=== PATIENT | male | born 1975 | race Caucasian/White ===

== ENCOUNTER 2024-08-05 19:17 | Inpatient (IN) | payer BC ==
[2024-08-05] MEDS ORDERED: NALOXONE 0.4 MG/ML 1 ML VIAL IV PRN (19:52)
--- NOTE | 2024-08-05 19:52 | ED ---
Chest Pain HPI - General Chief Complaint: Chest Pain Stated Complaint: chest and L shoulder pain Time Seen by Provider: 08/05/24 19:28 Source: patient Mode of arrival: ambulatory Limitations: no limitations - History of Present Illness Initial Comments: 48-year-old male with past medical history of hypertension, borderline cholesterol who presents emergency department reporting chest pain. States that this chest pain started around 3 PM while he was driving. Describes it as a pressure sensation. Feels like as if he has to belch. He did have this pain 1 week ago. States he took Gas-X but it did not work. Pain eventually went away on its own. He tried the Gas-X again today and also did not work. He has never had any type of cardiac testing to include a stress test, echo. He denies any history of coronary disease. Describes the pain as a 5 out of 10. No associated shortness of breath but does admit to nausea with no vomiting. Denies any numbness, tingling or weakness in his extremities. No other alleviating, precipitating modifying factors - Related Data Home Medications Medication Instructions Recorded Confirmed Fluticasone Nasal Rison [Flonase 2 spray EA NOSTRIL HS 08/06/24 08/06/24 Nasal Rison] Previous Rx's Medication Instructions Recorded Aspirin 81 mg PO DAILY #30 tab 08/08/24 Atorvastatin [Lipitor] 40 mg PO HS #30 tab 08/08/24 Dapagliflozin Propanediol [Farxiga] 10 mg PO DAILY #30 tab 08/08/24 Metoprolol Succinate (ER) [Toprol 100 mg PO DAILY #30 tab 08/08/24 XL] Pantoprazole [Protonix] 40 mg PO AC-BRKFST #30 tab 08/08/24 Sacubitril/Valsartan [Entresto 49 1 each PO BID #60 tab 08/08/24 mg-51 mg Tablet] Spironolactone [Aldactone] 25 mg PO DAILY #30 tab 08/08/24 Ticagrelor [Brilinta] 90 mg PO BID #60 tab 08/08/24 Allergies Allergy/AdvReac Type Severity Reaction Status Date / Time No Known Allergies Allergy Verified 08/06/24 08:53 Review of Systems ROS Statement: Those systems with pertinent positive or pertinent negative responses have been documented in the HPI. ROS Other: All systems not noted in ROS Statement are negative. Past Medical History Past Medical History: Hypertension History of Any Multi-Drug Resistant Organisms: None Reported Past Surgical History: No Surgical Hx Reported Past Psychological History: No Psychological Hx Reported Smoking Status: Never smoker Past Alcohol Use History: Occasional Past Drug Use History: None Reported General Exam Limitations: no limitations General appearance: alert, in no apparent distress Head exam: Present: atraumatic, normocephalic, normal inspection Eye exam: Present: normal appearance, PERRL, EOMI. Absent: scleral icterus, conjunctival injection, periorbital swelling ENT exam: Present: normal exam, mucous membranes moist Neck exam: Present: normal inspection. Absent: tenderness, meningismus, lymphadenopathy Respiratory exam: Present: normal lung sounds bilaterally. Absent: respiratory distress, wheezes, rales, rhonchi, stridor Cardiovascular Exam: Present: normal rhythm, tachycardia, normal heart sounds. Absent: systolic murmur, diastolic murmur, rubs, gallop, clicks GI/Abdominal exam: Present: soft, normal bowel sounds. Absent: distended, tenderness, guarding, rebound, rigid Extremities exam: Present: normal inspection, full ROM, normal capillary refill. Absent: tenderness, pedal edema, joint swelling, calf tenderness Back exam: Present: normal inspection Neurological exam: Present: alert, oriented X3, CN II-XII intact Psychiatric exam: Present: normal affect, normal mood Skin exam: Present: warm, dry, intact, normal color. Absent: rash Course Vital Signs 08/05/24 19:17 Temperature 97.9 F Pulse Rate 111 H Respiratory 18 Rate Blood Pressure 155/105 O2 Sat by Pulse 98 Oximetry Chest Pain MDM - MDM Was pt. sent in by a medical professional or institution (Dr. PA, MANAGEMENT PROFESSOR, urgent care, hospital, or [facility]...) When possible be specific @ -No Did you speak to anyone other than the patient for history (EMS, parent, family, police, friend...)? What history was obtained from this source @ -No Did you review nursing and triage notes (agree or disagree)? Why? @ -I reviewed and agree with nursing and triage notes Were old charts reviewed (outside hosp., previous admission, EMS record, old EKG, old radiological studies, urgent care reports/EKG's, [facility] records)? Report findings @ -No old charts were reviewed Differential Diagnosis (chest pain, altered mental status, abdominal pain women, abdominal pain men, vaginal bleeding, weakness, fever, dyspnea, syncope, headache, dizziness, GI bleed, back pain, seizure, CVA, palpatations, mental health, musculoskeletal)? @ -Differential Chest Pain: Stable Angina, Unstable Angina, STEMI, NSTEMI Aortic Dissection, Pneumothorax, Musculoskeletal, Esophageal Spasm GERD, Cholecystitis, Pancreatitis, Zoster, this is not meant to be an all-inclusive list. EKG interpreted by me (3pts min.). @ - First EKG done at 1925 demonstrates sinus tachycardia with a rate of 102. OH interval 159. QRS 89. QTc of 374. No ST segment elevation which meet STEMI criteria however there is mildly concerning ST elevation in V2 Second EKG demonstrates sinus tachycardia with a rate of 107. OH interval 160. QRS 106. QTc of 380. There is no ST elevation in V3 as well as V2 with some reciprocal depression in 2, 3 and aVF. MEETS STEMI CRITERIA Third EKG is completed at 1938 which continues to demonstrate [address] elevation in V3, V2 with reciprocal changes in inferior leads. Rate of 106. OH interval 159. QRS 100. QTc of 384 X-rays interpreted by me (1pt min.). @ -Yes which demonstrates no acute process CT interpreted by me (1pt min.). @ -None done U/S interpreted by me (1pt. min.). @ -None done What testing was considered but not performed or refused? (CT, X-rays, U/S, labs)? Why? @ -None What meds were considered but not given or refused? Why? @ -None Did you discuss the management of the patient with other professionals (professionals i.e. , PA, MANAGEMENT PROFESSOR, lab, RT, psych nurse, social work lecturer, bomb squad officer, teacher, business services officer, hospice case manager)? Give summary @ -Discussed case with doctor Kelsey in regards to STEMI activation Was smoking cessation discussed for >3mins.? @ -No Was critical care preformed (if so, how long)? @ -Yes, 35 minutes for STEMI activation Were there social determinants of health that impacted care today? How? (Homelessness, low income, unemployed, alcoholism, drug addiction, transportation, low edu. Level, literacy, decrease access to med. care, longterm, rehab)? @ -No Was there de-escalation of care discussed even if they declined (Discuss DNR or withdrawal of care, Hospice)? DNR status @ -No What co-morbidities impacted this encounter? (DM, HTN, Smoking, COPD, CAD, Cancer, CVA, ARF, Chemo, Hep., AIDS, mental health diagnosis, sleep apnea, morbid obesity)? @ -Hypertension Was patient admitted / discharged? Hospital course, mention meds given and route, prescriptions, significant lab abnormalities, going to OR and other pertinent info. @ -Upon arrival patient seen and evaluated in hallway 22. Thorough history and physical exam was performed. Original EKG was done at 1925 which demonstrates mildly concerning elevation in V2. No STEMI criteria at this time. Repeat EKG completed within 10 additional minutes of the first is now demonstrate elevation in V2 and V3 with reciprocal changes. STEMI is activated at this time. Dr. Kelsey does call and then shortly afterwards presents the emergency department to evaluate the patient. He is in agreement that the second and third EKG obtained now demonstrate STEMI criteria. Patient was given 4000 units of heparin, 80 mg atorvastatin, four chewable 81 mg aspirins and a liter bolus of normal saline. Laboratory studies are drawn on the patient. A portable chest x-ray was performed. Patient was promptly taken to the [facility] in stable condition. She did speak with Bernice from [facility] for the admission Undiagnosed new problem with uncertain prognosis? @ -No Drug Therapy requiring intensive monitoring for toxicity (Heparin, Nitro, Insulin, Cardizem)? @ -Heparin Were any procedures done? @ -No Diagnosis/symptom? @ -Acute chest pain, acute STEMI Acute, or Chronic, or Acute on Chronic? @ -Acute Uncomplicated (without systemic symptoms) or Complicated (systemic symptoms)? @ -Complicated Side effects of treatment? @ -No Exacerbation, Progression, or Severe Exacerbation? @ -No Poses a threat to life or bodily function? How? (Chest pain, [place], [place], pneumonia, PE, COPD, DKA, ARF, appy, cholecystitis, CVA, Diverticulitis, Homicidal, Suicidal, threat to staff... and all critical care pts) @ -Yes this patient does have ST elevation on second and third EKG Disposition Clinical Impression: Chest pain, ST elevation myocardial infarction (STEMI) Disposition: ADMITTED IP TO THIS HOSP Condition: Stable Is patient prescribed a controlled substance at d/c from ED?: No Time of Disposition: 19:51 Decision to Admit Reason: Admit from EC Decision Date: 08/05/24 Decision Time: 19:52
[2024-08-05] MEDS: ATORVASTATIN 80 MG TAB PO STA (19:55)
[2024-08-05] MEDS: ASPIRIN 81 MG PO STA (19:55)
[2024-08-05] MEDS: HEPARIN SODIUM 1,000 UN/ML (10ML VL) IV ONE ×3 (19:55→20:28)
[2024-08-05] MEDS: SODIUM CHLORIDE 0.9% 1,000 ML IV SCH (19:59)
[2024-08-05 20:01] LABS: Basophils # (A) 0.1 k/uL (0-0.2); Basophils % (A) 1 %; Eosinophils # (A) 0.1 k/uL (0-0.7); Eosinophils % (A) 1 %; HCT 48.7 % (39.0-53.0); HGB 16.7 gm/dL (13.0-17.5); Lymphocytes # (A) 2.1 k/uL (1.0-4.8); Lymphocytes % (A) 17 %; MCH 30.2 pg (25.0-35.0); MCHC 34.2 g/dL (31.0-37.0); MCV 88.2 fL (80.0-100.0); Mean Platelet Volume 7.5; Monocytes # (A) 0.7 k/uL (0-1.0); Monocytes % (A) 6 %; Neutrophils # (A) 9.1 k/uL (1.3-7.7); Neutrophils % (A) 75 %; Platelet Count 275 k/uL (150-450); RBC 5.52 m/uL (4.30-5.90); WBC 12.2 k/uL (3.8-10.6)
[2024-08-05] MEDS: NITROGLYCERIN SL TABS 0.4 MG TAB SUBLINGUAL STA (20:02)
--- NOTE | 2024-08-05 20:05 | XR ---
EXAMINATION TYPE: XR chest 1V DATE OF EXAM: 08/05/2024 7:54 PM COMPARISON: None. CLINICAL INDICATION: Male, 48 years old with history of chest pain; [facility] TECHNIQUE: XR chest 1V Frontal view of the chest. FINDINGS: Lungs/Pleura: There is no evidence of pleural effusion, focal consolidation, or pneumothorax. Pulmonary vascularity: Unremarkable. Heart/mediastinum: Cardiomediastinal silhouette is unremarkable. Musculoskeletal: No acute osseous pathology. Other findings: None IMPRESSION: No acute cardiopulmonary disease/process. [facility], , 08/05/2024 8:03 PM
[2024-08-05 20:09] LABS: Partial Thromboplastin Time 28.3 sec (22.0-30.0); Prothrombin Time 11.3 sec (10.0-12.5)
[2024-08-05] MEDS: IV FLUID CONTINUATION 1,000 ML IV ONE (20:10)
--- NOTE | 2024-08-05 20:14 | P.CRDCN ---
History of Present Illness Consult date: 08/05/24 History of present illness: HISTORY OF PRESENTING ILLNESS: 48-year-old male presented to the [facility] ER because of symptoms of substernal chest pressure. He reports that his symptoms started today afternoon. He had similar symptoms last week but they were on and off and but less intense. Because his symptoms were more intense today he decided to come to the ER. He describes symptoms of substernal chest pressure-like symptoms like someone is sitting on his chest. He also has sense of impending doom, diaphoresis and difficulty in taking deep breath. She does have prior history of essential hypertension. He denies any history of smoking, recreational drug use marijuana use. He does use occasional alcohol use. Does report family history of coronary artery disease in father and mid 50s. Not on aspirin or any blood thinners, denies any bleeding diathesis, cancer history strokes malignancies. Admission ECG showed ST elevations in lead V2 V3 with reciprocal changes in inferior lead. Sinus tachycardia Bedside echocardiogram showed an EF of 30 to 35% with mid to distal anterior wall anteroapical wall and apical wall hypokinesia. REVIEW OF SYSTEMS: 14 point review of system is negative except what is mentioned above in HPI. PHYSICAL EXAMINATION: Neck: Brisk carotid upstroke, no jugular venous distention. Lungs: Clear to auscultation. Heart: Regular rate and rhythm, S1-S2, , no murmur or rub. Abdomen: Soft nontender, positive bowel sounds. Extremities: No edema, intact distal pulses. Neuro: Alert, oritented, no focal deficits. Detailed neuro exam was not performed. ASSESSMENT: # Anterior STEMI # Ischemic cardiomyopathy # Essential hypertension # Obesity PLAN: Plan for emergent cardiac catheterization Further recommendations to follow Migue Kelsey MD, FACC, RPVI Thank you for allowing [facility] to participate in this patient's care. Feel free to reach out in case of any followup questions. Past Medical History Past Medical History: Hypertension History of Any Multi-Drug Resistant Organisms: None Reported Past Surgical History: No Surgical Hx Reported Past Psychological History: No Psychological Hx Reported Smoking Status: Never smoker Past Alcohol Use History: Occasional Past Drug Use History: None Reported Medications and Allergies Allergies Allergy/AdvReac Type Severity Reaction Status Date / Time No Known Allergies Allergy Verified 08/05/24 19:21 Physical Exam Vitals: Vital Signs Temp Pulse Resp BP Pulse Ox 08/05/24 19:17 97.9 F 111 H 18 155/105 98 Intake and Output 08/05/24 08/05/24 08/05/24 06:59 14:59 22:59 Other: Weight 95.254 kg Results 08/05/24 19:33 Coagulation 08/05/24 Range/Units 19:33 PT 11.3 (10.0-12.5) sec APTT 28.3 (22.0-30.0) sec CBC 08/05/24 Range/Units 19:33 WBC 12.2 H (3.8-10.6) k/uL RBC 5.52 (4.30-5.90) m/uL Hgb 16.7 (13.0-17.5) gm/dL Hct 48.7 (39.0-53.0) % Plt Count 275 (150-450) k/uL Current Medications Generic Name Dose Route Start Last Admin Trade Name Freq PRN Reason Stop Dose Admin Sodium Chloride 1,000 mls @ 130 mls/hr 08/05/24 20:00 08/05/24 19:59 Saline 0.9% IV 130 mls/hr .Q7H42M FELTON Administration Naloxone HCl 0.2 mg 08/05/24 19:52 Naloxone 0.4 Mg/Ml 1 Ml Vial IV Q2M PRN Opioid Reversal Intake and Output 08/05/24 08/05/24 08/05/24 06:59 14:59 22:59 Other: Weight 95.254 kg Patient Weight 08/06/24 06:59 Weight 95.254 kg 08/05/24 19:33
[2024-08-05 20:17] LABS: ALT 42 U/L (4-49); AST 97 U/L (17-59); African American GFR (CKD) >90 (>60 ml/min/1.73 sqM); Albumin 4.8 g/dL (3.5-5.0); Alkaline Phosphatase 75 U/L (38-126); Anion Gap 9 mmol/L; Blood Urea Nitrogen 15 mg/dL (9-20); Calcium 9.6 mg/dL (8.4-10.2); Carbon Dioxide 30 mmol/L (22-30); Chloride 98 mmol/L (98-107); Glucose 119 mg/dL (74-99); Lipase 108 U/L (23-300); Non-African American GFR(CKD) >90 (>60 ml/min/1.73 sqM); Sodium 137 mmol/L (137-145); Total Bilirubin 0.8 mg/dL (0.2-1.3)
[2024-08-05] MEDS: LIDOCAINE 1% INJ 10MG/ML (20 ML MDV) SQ ONE (20:21)
[2024-08-05] MEDS: VERAPAMIL SYRINGE (5 MG/10 ML) INTRAARTER ONE ×2 (20:22→21:05)
[2024-08-05] MEDS: MIDAZOLAM 2 MG/2 ML VIAL IVP ONE ×2 (20:22)
[2024-08-05] MEDS: fentaNYL (PF) 50 MCG/1 ML VIAL IVP ONE ×2 (20:22)
[2024-08-05] MEDS: TICAGRELOR 90 MG TAB PO ONE ×2 (20:39)
--- NOTE | 2024-08-05 20:43 | P.CARDCATH ---
Date of Procedure: 08/05/24 Description of Procedure: DIAGNOSTIC CORONARY ANGIOGRAPHY and LEFT HEART CATH REPORT PROCEDURES PERFORMED: Left heart catheterization Left coronary angiography Attempted right coronary artery angiography Moderate conscious sedation 18 mins Right radial access INDICATION: Anterior STEMI BRIEF HPI: 48-year-old with past medical history of hypertension presented to the hospital because of substernal chest pressure. His EKG showed anterior STEMI. Bedside echo showed an EF of 30% with apical and anteroapical hypokinesia. CONSENT: I have explained the procedural steps of above-mentioned procedures in layman's terms to the patient. I discussed the risks (including but not limited to stroke, emergent vascular or cardiac surgery or ), benefits and alternative therapies for the above-mentioned procedure. I discussed the risks of sedation/analgesia and blood product administration (if indicated). The patient has indicated understanding and acceptance of these risks. Conscious Sedation: Patient's ECG, heart rate, blood pressure, pulse oximetry were monitored throughout the duration of procedure under my direct supervision. 1 mg Versed and 50 mcg Fentanyl were used for induction of moderate conscious sedation. Total duration of moderate concious sedation 18 minutes. PROCEDURAL DETAILS: Patient was prepped and draped in sterile fashion. 1% lidocaine was infiltrated over the right radial artery. Right radial access was obtained via modified seldinger technique.. Medications: 5mg of verapamil was administed in the radial sheet. 2000 units of Heparin was administed once the catheter reached the aortic root. 4000 units of heparin was administered in the ER. Wires and Catheter used: J wire was advanced under fluroscopy to get to aortic root. 5 [place] JR 4 diagnostic catheter was utilized obtain left ventricular pressure and pressure gradint across aortic valve. 5 [place] JR 5 diagnostic catheter was used but could not selectively engage the right coronary ostium. Due to the time constraints, the catheter was exchanged for a left catheter. 5 [place] JL 3.5 diagnostic catheter was utilized to selectively engage the left coronary ostium. Angiographic images were reviewed in detail. Catheter and wire were removed. Radial sheet was flushed. The right radial sheath was removed and a TR band was placed. Patent hemostasis was achieved. The patient tolerated the procedure well. Patient was transported back to the post catheterization holding area in stable condition. TECHNICAL DETAILS Total contrast used: Isovue [60 ml] Complications: [none] Estimated Blood loss: less than 15 ml HEMODYNAMICS: Aortic Pressure: 118/82 mmHg. LV pressure: 120/10 mmHg. LVEDP 15 mmHg. There was no significant gradient across the aortic valve. SELECTIVE CORONARY ARTERIOGRAPHY: LEFT MAIN: The left main is short and large caliber vessel. It bifurcates into the LAD and circumflex. Left main appears angiographically normal. LEFT ANTERIOR DESCENDING CORONARY ARTERY: LAD is a large caliber vessel which wraps around to the apex. Proximal LAD appears angiographically normal. Mid LAD has a 90 to 95% stenosis at the level of bifurcation of diagonal 1 branch involving the bifurcation site in Huang 1,1,1 fashion. Distal LAD appears angiographically patent. MARQUISE II flow. LEFT CIRCUMFLEX CORONARY ARTERY: It is nondominant vessel. Left circumflex is a moderate caliber vessel. Proximal LCx has 20% disease. Mid LCx appears patent. LCx is large to 3 medium size diagonal branches appear angiographically patent. RIGHT CORONARY ARTERY: Dominant vessel. Could not be selectively imaged. Will be imaged after the PCI. Please refer to PCI report. IMPRESSION: Anterior STEMI 90 to 95% mid LAD stenosis MARQUISE II flow PLAN: Emergent PCI of mid LAD with Dr. Bernard Further recommendations to follow Performing Physician Migue Kelsey MD, FACC, RPVI Thank you for allowing [facility] to participate in this patient's care. Feel free to reach out in case of any followup questions.
[2024-08-05] MEDS: NITROGLYCERIN 1000MCG/10ML SYRINGE INTRAARTER ONE (20:47)
[2024-08-05] MEDS: IOPAMIDOL-370 100ML BTL INJ ONE ×2 (20:51→21:02)
[2024-08-05 20:56] LABS: NT-Pro-B-Type Natriuretic Pept 59 pg/mL
[2024-08-05 21:41] LABS: Glucose,Whole Blood 113 mg/dL (70-110)
[2024-08-05] MEDS: ATORVASTATIN 40 MG TAB PO SCH (21:45)
[2024-08-05] MEDS: METOPROLOL SUCCINATE (ER) 25 MG TAB.ER.24H PO SCH (21:56)
[2024-08-05] MEDS: ACETAMINOPHEN TAB 325 MG TAB PO PRN (21:57)
--- NOTE | 2024-08-05 23:16 | P.PRCINT ---
Percutaneous Coronary Int. - Percutaneous Coronary Intervention Percutaneous Coronary Intervention: PROCEDURES PERFORMED: Bilateral coronary angiography, PCI mid LAD with a 3.25 x 15mm Xience MICHELLE, post dilated with a 3.75mm NC balloon, IVUS LAD INDICATION: STEMI CONSENT:I have discussed the risks, benefits and alternative therapies for the above-mentioned procedure and for both sedation/analgesia as well as necessary blood product administration, if indicated, as they pertain to this patient. The patient has indicated understanding and acceptance of the risks and procedures discussed. PROCEDURE: After the risks, benefits and alternatives of the above mentioned procedure explained in detail with the patient, informed consent was obtained. Patient was taken to the catheterization lab and prepped and draped in usual fashion. A 6-German sheath had previously been placed in the right radial artery. The decision was made to perform PCI of the LAD. Hepairn was given. A 6Fr CLS 3.5 guide was used to engage the left main. A 0.014 BMW wire was advanced into the distal LAD. A 2.5 x 12mm Xience MICHELLE was used to predilate the LAD lesion. IVUS was performed which showed reference vessel 3.25-3.75 proximally. A 3.25 x 15mm Xience MICHELLE was placed in the mid LAD. The stent was post dilated with a 3.75mm NC balloon. Repeat IVUS showed excellent stent apposition with no dissection. Final angiograms were performed. Preintervention there was 99% stenosis and MARQUISE 2 flow and post intervention there was < 10% stenosis and MARQUISE 3 flow. The right radial sheath was removed and a TR band was placed with hemostasis achieved. The patient tolerated the procedure well. Patient was transported back to the post catheterization holding area in stable condition. Conscious Sedation: Patient was monitored under the direct supervision of myself for conscious sedation using Versed and fentanyl for a total duration of 40 minutes HEMODYNAMICS: Ao: 138/71 SELECTIVE CORONARY ARTERIOGRAPHY: LEFT MAIN: The left main is a large caliber vessel which bifurcates into the LAD and circumflex. There is no significant stenosis. LEFT ANTERIOR DESCENDING CORONARY ARTERY: LAD is a large caliber vessel which wraps around to the apex. There is a mid LAD 99% stenosis and otherwise 20-30% mid and distal LAD stenosis. LEFT CIRCUMFLEX CORONARY ARTERY: Left circumflex is a moderate caliber vessel with mild 10-20% stenosis. RIGHT CORONARY ARTERY: The right coronary artery is a large caliber vessel which gives off a PDA and PLV branch and is the dominant vessel. There is a mid RCA 20-30% stenosis. FINAL IMPRESSION: 1. CAD as described above with 99% mid LAD stenosis 2. S/p PCI mid LAD with a 3.25 x 15mm Xience MICHELLE, post dilated with a 3.75mm NC balloon PLAN: 1. Aggressive risk factor modification per most recent ACC/AHA guidelines. 2. Continue dual antiplatelets with aspirin and Brillinta for 12 months
[2024-08-05] MEDS: SACUBITRIL/VALSARTAN 24 MG-26 MG TABLET PO STA (23:44)
[2024-08-06 02:41] LABS: Chol/HDL Ratio 6.09 Ratio; LDL Cholesterol,Calculated 149.5 mg/dL (0.0-131.0)
[2024-08-06 04:15] LABS: African American GFR (CKD) >90 (>60 ml/min/1.73 sqM); Anion Gap 9 mmol/L; Blood Urea Nitrogen 10 mg/dL (9-20); Calcium 9.3 mg/dL (8.4-10.2); Carbon Dioxide 23 mmol/L (22-30); Chloride 102 mmol/L (98-107); Glucose 133 mg/dL (74-99); Non-African American GFR(CKD) >90 (>60 ml/min/1.73 sqM); Sodium 134 mmol/L (137-145)
[2024-08-06 04:28] LABS: Basophils # (A) 0.1 k/uL (0-0.2); Basophils % (A) 0 %; Eosinophils # (A) 0.1 k/uL (0-0.7); Eosinophils % (A) 1 %; HCT 45.8 % (39.0-53.0); HGB 15.9 gm/dL (13.0-17.5); Lymphocytes % (A) 15 %; MCHC 34.7 g/dL (31.0-37.0); MCV 89.5 fL (80.0-100.0); Mean Platelet Volume 7.9; Monocytes % (A) 8 %; Neutrophils # (A) 9.6 k/uL (1.3-7.7); Neutrophils % (A) 74 %; Platelet Count 234 k/uL (150-450); RBC 5.12 m/uL (4.30-5.90); RDW 13.2 % (11.5-15.5); WBC 12.9 k/uL (3.8-10.6)
[2024-08-06] MEDS: PANTOPRAZOLE 40 MG TABLET PO SCH (06:20)
[2024-08-06] MEDS: ASPIRIN 81 MG PO SCH (08:35)
[2024-08-06] MEDS: SPIRONOLACTONE 25 MG TAB PO SCH (08:35)
[2024-08-06] MEDS: SACUBITRIL/VALSARTAN 24 MG-26 MG TABLET PO SCH ×2 (08:36→20:53)
[2024-08-06] MEDS: DAPAGLIFLOZIN PROPANEDIOL 10 MG TABLET PO SCH (08:36)
--- NOTE | 2024-08-06 09:34 | P.PN ---
Subjective Progress Note Date: 08/06/24 The patient is a 48-year-old male who presented with acute onset of chest discomfort. He was found to have an anterior wall myocardial infarction. Coronary angiogram revealed 90 to 95% mid LAD stenosis, which was subsequently stented. Mild disease noted in the left circumflex and RCA. Patient states he did well overnight. No current chest pain or pressure. No difficulty breathing. No dizziness or lightheadedness. GENERAL: Well-appearing, well-nourished and in no acute distress. NECK: Supple without JVD or thyromegaly. LUNGS: Breath sounds clear to auscultation bilaterally. Respiration equal and unlabored. No wheezes, rales or rhonchi. HEART: Regular rate and rhythm without murmurs, rubs or gallops. S1 and S2 heard. EXTREMITIES: Normal range of motion, no edema. No clubbing or cyanosis. Peripheral pulses intact and strong. TELEMETRY: Sinus rhythm to sinus tachycardia LABS: WBC 12.9, hemoglobin 15.9, hematocrit 45.8, platelet 234, sodium 134, potassium 4.0, BUN 10, creatinine 0.51, LDL 149, HDL 39 and triglycerides 247, TSH 1.6, hemoglobin A1c 5.8 IMPRESSION: ST elevated myocardial infarction, anterior wall Status post stenting of the LAD Hypertension Family history of premature coronary artery disease Obstructive sleep apnea PLAN: Start Brilinta for antiplatelet therapy Increase metoprolol to 50 mg daily Awaiting echocardiogram results Further recommendations to be based upon clinical course I am dictating on behalf of Dr Porter Savage's history/physical and assessment/ plan. Objective - Vital Signs Vital signs: Vital Signs Temp 98.2 F 08/06/24 08:00 Pulse 92 08/06/24 08:00 Resp 20 08/06/24 08:00 BP 140/93 08/06/24 08:00 Pulse Ox 96 08/06/24 08:00 FiO2 Intake & Output 08/05/24 08/06/24 08/06/24 18:59 06:59 18:59 Intake Total 560 600 Output Total 1100 0 Balance -540 600 Weight 93 kg Intake: IV 560 Sodium Chloride 0.9% 1, 260 000 ml @ 130 mls/hr IV . Q7H42M FELTON Rx#:[id number] Oral 600 Output: Urine 1100 0 Other: Voiding Method Urinal Urinal # Voids 1 - Labs CBC & Chem 7: 08/06/24 03:00 08/06/24 03:00 Labs: Abnormal Lab Results - Last 24 Hours (Table) 08/05/24 08/05/24 08/05/24 Range/Units 19:33 19:33 19:33 WBC 12.2 H (3.8-10.6) k/uL Neutrophils # 9.1 H (1.3-7.7) k/uL Sodium (137-145) mmol/L Creatinine (0.66-1.25) mg/dL Glucose 119 H (74-99) mg/dL POC Glucose (mg/dL) (70-110) mg/dL AST 97 H (17-59) U/L Troponin I 6.450 H* (0.000-0.034) ng/mL Triglycerides (0.00-149.00) mg/dL Cholesterol (0.00-200.00) mg/dL LDL Cholesterol, Calc (0.0-131.0) mg/dL VLDL Cholesterol, Calc (5.00-40.00) mg/dL HDL Cholesterol (40.00-60.00) mg/dL 08/05/24 08/05/24 08/06/24 Range/Units 19:33 21:39 03:00 WBC 12.9 H (3.8-10.6) k/uL Neutrophils # 9.6 H (1.3-7.7) k/uL Sodium (137-145) mmol/L Creatinine (0.66-1.25) mg/dL Glucose (74-99) mg/dL POC Glucose (mg/dL) 113 H (70-110) mg/dL AST (17-59) U/L Troponin I (0.000-0.034) ng/mL Triglycerides 247.00 H (0.00-149.00) mg/dL Cholesterol 238.00 H (0.00-200.00) mg/dL LDL Cholesterol, Calc 149.5 H (0.0-131.0) mg/dL VLDL Cholesterol, Calc 49.40 H (5.00-40.00) mg/dL HDL Cholesterol 39.10 L (40.00-60.00) mg/dL 08/06/24 Range/Units 03:00 WBC (3.8-10.6) k/uL Neutrophils # (1.3-7.7) k/uL Sodium 134 L (137-145) mmol/L Creatinine 0.51 L (0.66-1.25) mg/dL Glucose 133 H (74-99) mg/dL POC Glucose (mg/dL) (70-110) mg/dL AST (17-59) U/L Troponin I (0.000-0.034) ng/mL Triglycerides (0.00-149.00) mg/dL Cholesterol (0.00-200.00) mg/dL LDL Cholesterol, Calc (0.0-131.0) mg/dL VLDL Cholesterol, Calc (5.00-40.00) mg/dL HDL Cholesterol (40.00-60.00) mg/dL
[2024-08-06] MEDS: TICAGRELOR 90 MG TAB PO SCH (09:48)
[2024-08-06] MEDS: SACUBITRIL/VALSARTAN 24 MG-26 MG TABLET PO ONE (09:48)
[2024-08-06] MEDS: METOPROLOL SUCCINATE (ER) 25 MG TAB.ER.24H PO STA (10:40)
--- NOTE | 2024-08-06 13:20 | P.HPIM ---
History of Present Illness H&P Date: 08/06/24 History of present illness; patient is a 48-year-old gentleman with past medical history significant for hypertension brought in the ER because of chest pain. Patient states that he was all right this afternoon and started experiencing chest pain that was central in location pressure-like, nonradiating, no aggravating or relieving factor associated with this chest pain. Was complaining of shortness of breath at time and was also complaining of diaphoresis. There was no complaint of orthopnea or PND. Patient denies any nausea, vomiting abdominal pain. There was no complaint of fever or chills. Because of chest pain, patient brought to the ER Initial lab work done in the ER showed WBC 12.2, hemoglobin 16.7, platelet count 275, sodium 137, potassium 4, carbon dioxide 30, anion gap 9, BUN 15, creatinine 0.69, glucose 119, HbA1c 5.8, calcium 9.6, magnesium 2, troponin 6.450, triglyceride 247, cholesterol 238 LDL 149.5 TSH 1.68 EKG done in the ER showed heart rate of 106, ST segment elevation in leads V2 V3,, no T-wave inversions seen. Chest x-ray done in the ER showed no acute cardiopulmonary process Coroner'S Juror was activated and patient went for emergent cardiac cath showing 90 to 95% mid LAD stenosis MARQUISE II flow S/p PCI mid LAD with a 3.25 x 15mm Xience MICHELLE, post dilated with a 3.75mm NC balloon Patient admitted to internal medicine service REVIEW OF SYSTEMS: CONSTITUTIONAL: No fever, no malaise, no fatigue. HEENT: No recent visual problems or hearing problems. Denied any sore throat. CARDIOVASCULAR: As mentioned above PULMONARY: As mentioned above GASTROINTESTINAL: No diarrhea, no nausea, no vomiting, no abdominal pain. NEUROLOGICAL: No headaches, no weakness, no numbness. HEMATOLOGICAL: Denies any bleeding or petechiae. GENITOURINARY: Denies any burning micturition, frequency, or urgency. MUSCULOSKELETAL/RHEUMATOLOGICAL: Denies any joint pain, swelling, or any muscle pain. ENDOCRINE: Denies any polyuria or polydipsia. The rest of the 14-point review of systems is negative. PHYSICAL EXAMINATION: GENERAL: The patient is alert and oriented x3, not in any acute distress. Well developed, well nourished. HEENT: Pupils are round and equally reacting to light. EOMI. No scleral icterus. No conjunctival pallor. Normocephalic, atraumatic. No pharyngeal erythema. No thyromegaly. CARDIOVASCULAR: S1 and S2 present. No murmurs, rubs, or gallops. PULMONARY: Chest is clear to auscultation, no wheezing or crackles. ABDOMEN: Soft, nontender, nondistended, normoactive bowel sounds. No palpable organomegaly. MUSCULOSKELETAL: No joint swelling or deformity. EXTREMITIES: No cyanosis, clubbing, or pedal edema. NEUROLOGICAL: Gross neurological examination did not reveal any focal deficits. SKIN: No rashes. Assessment and plan Acute ST elevation [place] Cardiomyopathy essential hypertension -obesity Monitor vital signs Monitor CBC Monitor CMP Continue telemetry monitoring Trend troponins Start pharmacy dose heparin Ordered ordered 2D echo Ordered lipid panel Ordered HbA1c level cardiac cath showing 90 to 95% mid LAD stenosis MARQUISE II flow S/p PCI mid LAD with a 3.25 x 15mm Xience MICHELLE, post dilated with a 3.75mm NC balloon Start aspirin, Brilinta, Plavix Start Toprol Start Entresto Cardiology following Labs and medication were reviewed.. Continue same treatment. Continue with symptomatic treatment. Resume home medication. Monitor labs and vitals. DVT and GI prophylaxis. Further recommendations as per clinical course of the patient Dictation was produced using [employer] dictation software. please excuse any grammatical, word or spelling errors. Past Medical History Past Medical History: Hypertension History of Any Multi-Drug Resistant Organisms: None Reported Past Surgical History: No Surgical Hx Reported Past Anesthesia/Blood Transfusion Reactions: No Reported Reaction Past Psychological History: No Psychological Hx Reported Smoking Status: Former smoker Past Alcohol Use History: Occasional Past Drug Use History: None Reported Medications and Allergies Home Medications Medication Instructions Recorded Confirmed Type Fluticasone Nasal [place] [Flonase 2 spray EA NOSTRIL HS 08/06/24 08/06/24 History Nasal [place]] Losartan [Cozaar] 25 mg PO HS 08/06/24 08/06/24 History Allergies Allergy/AdvReac Type Severity Reaction Status Date / Time No Known Allergies Allergy Verified 08/06/24 08:53 Physical Exam Vitals: Vital Signs Temp Pulse Resp BP Pulse Ox 08/06/24 08:00 98.2 F 92 20 140/93 96 08/06/24 07:00 93 18 126/93 08/06/24 06:00 94 18 131/89 08/06/24 05:00 89 15 125/89 08/06/24 04:30 86 18 116/81 95 08/06/24 04:00 98.7 F 87 18 129/97 94 L 08/06/24 03:30 88 18 129/97 94 L 08/06/24 03:00 92 15 132/98 94 L 08/06/24 02:30 90 20 134/103 94 L 08/06/24 02:00 93 20 145/97 94 L 08/06/24 01:30 96 17 137/98 93 L 08/06/24 01:00 90 15 140/103 95 08/06/24 00:30 89 18 134/99 95 08/06/24 00:00 91 18 131/98 94 L 08/05/24 23:49 18 08/05/24 23:00 92 17 137/100 94 L 08/05/24 22:45 98 14 142/101 95 08/05/24 22:30 96 16 141/104 94 L 08/05/24 22:15 96 10 L 143/104 95 08/05/24 22:00 98 16 139/105 95 08/05/24 21:50 101 H 16 139/105 95 08/05/24 21:40 97.9 F 98 14 132/101 95 08/05/24 19:17 97.9 F 111 H 18 155/105 98 Intake and Output 08/05/24 08/06/24 08/06/24 22:59 06:59 14:59 Intake Total 430 130 600 Output Total 1100 0 Balance 430 -970 600 Intake: IV 430 130 Sodium Chloride 0.9% 1, 130 130 000 ml @ 130 mls/hr IV . [id number] [facility] Rx#:[id number] Oral 600 Output: Urine 1100 0 Other: Voiding Method Urinal Urinal # Voids 1 Weight 95.254 kg 93 kg Results CBC & Chem 7: 08/06/24 03:00 08/06/24 03:00 Labs: Abnormal Lab Results - Last 24 Hours (Table) 08/05/24 08/05/24 08/05/24 Range/Units 19:33 19:33 19:33 WBC 12.2 H (3.8-10.6) k/uL Neutrophils # 9.1 H (1.3-7.7) k/uL Sodium (137-145) mmol/L Creatinine (0.66-1.25) mg/dL Glucose 119 H (74-99) mg/dL POC Glucose (mg/dL) (70-110) mg/dL AST 97 H (17-59) U/L Troponin I 6.450 H* (0.000-0.034) ng/mL Triglycerides (0.00-149.00) mg/dL Cholesterol (0.00-200.00) mg/dL LDL Cholesterol, Calc (0.0-131.0) mg/dL VLDL Cholesterol, Calc (5.00-40.00) mg/dL HDL Cholesterol (40.00-60.00) mg/dL 08/05/24 08/05/24 08/06/24 Range/Units 19:33 21:39 03:00 WBC 12.9 H (3.8-10.6) k/uL Neutrophils # 9.6 H (1.3-7.7) k/uL Sodium (137-145) mmol/L Creatinine (0.66-1.25) mg/dL Glucose (74-99) mg/dL POC Glucose (mg/dL) 113 H (70-110) mg/dL AST (17-59) U/L Troponin I (0.000-0.034) ng/mL Triglycerides 247.00 H (0.00-149.00) mg/dL Cholesterol 238.00 H (0.00-200.00) mg/dL LDL Cholesterol, Calc 149.5 H (0.0-131.0) mg/dL VLDL Cholesterol, Calc 49.40 H (5.00-40.00) mg/dL HDL Cholesterol 39.10 L (40.00-60.00) mg/dL 08/06/24 Range/Units 03:00 WBC (3.8-10.6) k/uL Neutrophils # (1.3-7.7) k/uL Sodium 134 L (137-145) mmol/L Creatinine 0.51 L (0.66-1.25) mg/dL Glucose 133 H (74-99) mg/dL POC Glucose (mg/dL) (70-110) mg/dL AST (17-59) U/L Troponin I (0.000-0.034) ng/mL Triglycerides (0.00-149.00) mg/dL Cholesterol (0.00-200.00) mg/dL LDL Cholesterol, Calc (0.0-131.0) mg/dL VLDL Cholesterol, Calc (5.00-40.00) mg/dL HDL Cholesterol (40.00-60.00) mg/dL
--- NOTE | 2024-08-07 07:39 | CA ---
Transthoracic Echo Report Name: Rasheed Waters Age: 48 Gender: M : 1975 Exam Date: 08/06/2024 09:05 Exam Location: [place] Echo Ht (in): 67 Wt (lb): 210 Ordering Physician: Migue Kelsey MD ([id number]) Attending/Referring Phys: Vp [employer] Soto Peng, JEB Procedure CPT: Indications: stemi Cardiac Hx: HTN Technical Quality: Good Contrast 1: Definity Total Dose (mL): Contrast 2: Total Dose (mL): MEASUREMENTS (Male / Female) Normal Values 2D ECHO LV Diastolic Diameter PLAX 5.8 cm 4.2 - 5.9 / 3.9 - 5.3 cm LV Systolic Diameter PLAX 4.5 cm IVS Diastolic Thickness 1.1 cm 0.6 - 1.0 / 0.6 - 0.9 cm LVPW Diastolic Thickness 1.1 cm 0.6 - 1.0 / 0.6 - 0.9 cm LV Relative Wall Thickness 0.4 RV Internal Dim ED PLAX 2.8 cm LVOT Diameter 2.4 cm LA Systolic Diameter LX 4.1 cm 3.0 - 4.0 / 2.7 - 3.8 cm LV Diastolic Volume MOD BP 151.9 cm??? 67 - 155 / 56 - 104 cm??? LV Systolic Volume MOD BP 101.0 cm??? - 58 / 19 - 49 cm??? LV Ejection Fraction MOD BP 33.5 % >= 55 % LV Cardiac Index MOD BP 2362.4 cm???/min???m??? LV Diastolic Volume MOD 4C 178.3 cm??? LV Systolic Volume MOD 4C 116.8 cm??? LV Ejection Fraction MOD 4C 34.5 % LV Cardiac Index MOD 4C 2855.8 cm???/min???m??? LV Diastolic Length 4C 8.9 cm LV Systolic Length 4C 8.7 cm LV Diastolic Volume MOD 2C 123.1 cm??? LV Systolic Volume MOD 2C 87.5 cm??? LV Ejection Fraction MOD 2C 28.9 % LV Cardiac Index MOD 2C 1651.1 cm???/min???m??? LV Diastolic Length 2C 9.5 cm LV Systolic Length 2C 8.7 cm LA Volume 54.9 cm??? 18 - 58 / 22 - 52 cm??? LA Volume Index 25.5 cm???/m??? 16 - 28 cm???/m??? DOPPLER MV Area PHT 5.4 cm??? Mitral E Point Velocity 20.2 cm/s Mitral A Point Velocity 84.4 cm/s Mitral E to A Ratio 0.2 MV Deceleration Time 139.8 ms FINDINGS Left Ventricle Left ventricular ejection fraction is estimated at 30-35 %. Akinetic apex. Mildly increased septal wall thickness. Severely increased left ventricular systolic volume. Moderately decreased left ventricular ejection fraction. Right Ventricle Normal right ventricular size and function. Unable to estimate the right ventricular systolic pressure. Right Atrium Normal right atrial size. Left Atrium Normal left atrial size. Mitral Valve Structurally normal mitral valve. No mitral stenosis. Trace mitral regurgitation. Aortic Valve Trileaflet aortic valve. No aortic valve stenosis or regurgitation. Tricuspid Valve Structurally normal tricuspid valve. No tricuspid stenosis. No tricuspid regurgitation. Pulmonic Valve Structurally normal pulmonic valve. No pulmonic stenosis. Trace pulmonic regurgitation. Pericardium No pericardial effusion. No pleural effusion. Aorta Mild aortic dilatation at the level of the sinuses of valsalva (root). CONCLUSIONS Left ventricle is at upper limits of normal. There is severe hypokinesia of the mid to distal septum and adjoining anteroapical wall as well as inferoapical wall ejection fraction is in the 30% range. There is mild mitral and tricuspid regurgitation. Right-sided pressures could not be quantified no pericardial effusion. Previewed by: Dr. Katie De Paz MD (Electronically Signed) Final Date: 07 August 2024 07:38
[2024-08-07] MEDS: METOPROLOL SUCCINATE (ER) 50 MG TAB.ER.24H PO SCH (09:07)
[2024-08-07] MEDS: METOPROLOL SUCCINATE (ER) 25 MG TAB.ER.24H PO STA (11:20)
--- NOTE | 2024-08-07 12:45 | P.EPCON ---
Electrophysiology Consult - EP Consult Electrophysiology Consult: Patient was evaluated by me in follow-up on 3 S. 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 daily Maximize cardiomyopathy medications, start Entresto, continue spironolactone Will consider Farxiga tomorrow External ICD for 3 to 4 months, high risk for VT/VF given the delayed presentation of the anterior apical infarct, apical aneurysm, frequent nonsustained VT within 48 hours of revascularization Continue inpatient monitoring and maximization of medications
--- NOTE | 2024-08-07 13:07 | P.PN ---
Subjective Progress Note Date: 08/07/24 patient is a 48-year-old gentleman with past medical history significant for hypertension brought in the ER because of chest pain. Patient states that he was all right this afternoon and started experiencing chest pain that was central in location pressure-like, nonradiating, no aggravating or relieving f actor associated with this chest pain. Was complaining of shortness of breath at time and was also complaining of diaphoresis. There was no complaint of orthopnea or PND. Patient denies any nausea, vomiting abdominal pain. There was no complaint of fever or chills. Because of chest pain, patient brought to the ER Initial lab work done in the ER showed WBC 12.2, hemoglobin 16.7, platelet count 275, sodium 137, potassium 4, carbon dioxide 30, anion gap 9, BUN 15, creatinine 0.69, glucose 119, HbA1c 5.8, calcium 9.6, magnesium 2, troponin 6.450, triglyceride 247, cholesterol 238 LDL 149.5 TSH 1.68 EKG done in the ER showed heart rate of 106, ST segment elevation in leads V2 V3,, no T-wave inversions seen. Chest x-ray done in the ER showed no acute cardiopulmonary process Loft Rigger was activated and patient went for emergent cardiac cath showing 90 to 95% mid LAD stenosis MARQUISE II flow S/p PCI mid LAD with a 3.25 x 15mm Xience MICHELLE, post dilated with a 3.75mm NC balloon Patient admitted to internal medicine service 08/07. Patient seen examined. Denies any chest pain. Denies shortness of breath. Vital signs stable. Cardiology increase the dose of Toprol to 100 mg daily REVIEW OF SYSTEMS: CONSTITUTIONAL: No fever, no malaise,. CARDIOVASCULAR: No chest pain, no palpitations, no syncope. PULMONARY: No shortness of breath, no cough, GASTROINTESTINAL: No diarrhea, no nausea, no vomiting, no abdominal pain. NEUROLOGICAL: No headaches, no weakness, PHYSICAL EXAMINATION: GENERAL: The patient is alert and oriented x3, not in any acute distress. Well developed, well nourished. HEENT: Pupils are round and equally reacting to light. EOMI. No scleral icterus. No conjunctival pallor. Normocephalic, atraumatic. No pharyngeal erythema. No thyromegaly. CARDIOVASCULAR: S1 and S2 present. No murmurs, rubs, or gallops. PULMONARY: Chest is clear to auscultation, no wheezing or crackles. ABDOMEN: Soft, nontender, nondistended, normoactive bowel sounds. No palpable organomegaly. MUSCULOSKELETAL: No joint swelling or deformity. EXTREMITIES: No cyanosis, clubbing, or pedal edema. NEUROLOGICAL: Gross neurological examination did not reveal any focal deficits. SKIN: No rashes. Assessment and plan Acute ST elevation [place] Cardiomyopathy essential hypertension -obesity Monitor vital signs Monitor CBC Monitor CMP Continue telemetry monitoring cardiac cath showing 90 to 95% mid LAD stenosis MARQUISE II flow S/p PCI mid LAD with a 3.25 x 15mm Xience MICHELLE, post dilated with a 3.75mm NC balloon Continue aspirin, Brilinta, Lipitor Continue Toprol Continue Entresto Cardiology following, started patient on Aldactone and Farxiga Labs and medication were reviewed.. Continue same treatment. Continue with symptomatic treatment. Resume home medication. Monitor labs and vitals. DVT and GI prophylaxis. Further recommendations as per clinical course of the patient Dictation was produced using [employer] dictation software. please excuse any grammatical, word or spelling errors. Objective - Vital Signs Vital signs: Vital Signs Temp 98.0 F 08/06/24 20:18 Pulse 89 08/07/24 11:16 Resp 14 08/07/24 11:16 BP 110/74 08/07/24 11:16 Pulse Ox 96 08/07/24 11:16 FiO2 Intake & Output 08/06/24 08/07/24 08/07/24 18:59 06:59 18:59 Intake Total 900 190 Output Total 0 Balance 900 190 Weight 88.9 kg Intake: IV 10 Invasive Line 1 10 Oral 900 180 Output: Urine 0 Other: Voiding Method Urinal Urinal # Voids 1 # Bowel Movements 1 - Labs CBC & Chem 7: 08/06/24 03:00 08/06/24 03:00
--- NOTE | 2024-08-07 13:37 | P.PN ---
Subjective HISTORY OF PRESENT ILLNESS: 48-year-old male admitted to the hospital secondary to anterior STEMI. He underwent stenting of the LAD. Patient examined his right bedside. Patient currently denies chest pain or pressure. He denies shortness of breath. Repeat EKG performed this morning reveals sinus mechanism with deep T wave inversions in anterior leads. Patient is having runs of nonsustained VT. PHYSICAL EXAM: VITAL SIGNS: Reviewed. GENERAL: Well-developed in no acute distress. NECK: Supple. No JVD or thyromegaly LUNGS: Respirations even and unlabored. Lungs essentially clear to auscultation bilaterally. HEART: Regular rate and rhythm. S1 and S2 heard. EXTREMITIES: Normal range of motion. No clubbing or cyanosis. Peripheral pu lses intact. No lower extremity edema ASSESSMENT: Anterior STEMI, status post stenting of the LAD Ischemic cardiomyopathy Nonsustained ventricular tachycardia Hypertension Obstructive sleep apnea Family history of premature coronary artery disease PLAN: Continue dual antiplatelet therapy with aspirin and Brilinta for 1 year Continue high intensity statin. LDL goal less than 70 Continue Farxiga, Aldactone, and Entresto Increase metoprolol succinate to 100mg daily External ICD for 3 to 4 months, high risk for VT/VF given the delayed presentation of the anterior apical infarct, apical aneurysm, frequent nonsustained VT within 48 hours of revascularization Order for Assure external ICD given to case management Further recommendations pending patient course Nurse practitioner note has been reviewed by physician. Signing provider agrees with the documented findings, assessment, and plan of care documented by BECK TENDER as a scribe. Objective - Vital Signs Vital signs: Vital Signs Temp 98.0 F 08/06/24 20:18 Pulse 89 08/07/24 11:16 Resp 14 08/07/24 11:16 BP 110/74 08/07/24 11:16 Pulse Ox 96 08/07/24 11:16 FiO2 Intake & Output 08/06/24 08/07/24 08/07/24 18:59 06:59 18:59 Intake Total 900 190 Output Total 0 Balance 900 190 Weight 88.9 kg Intake: IV 10 Invasive Line 1 10 Oral 900 180 Output: Urine 0 Other: Voiding Method Urinal Urinal # Voids 1 # Bowel Movements 1 - Labs CBC & Chem 7: 08/06/24 03:00 08/06/24 03:00
[2024-08-07 18:00] VITALS: RESP 16
[2024-08-07] MEDS: SACUBITRIL/VALSARTAN 49 MG-51 MG TABLET PO SCH (20:28)
[2024-08-08] MEDS ORDERED: METOPROLOL SUCCINATE (ER) 50 MG TAB.ER.24H PO SCH (09:00)
[2024-08-08] MEDS: METOPROLOL SUCCINATE (ER) 100 MG TAB.ER.24H PO SCH (09:33)
[2024-08-08 10:44] VITALS: BP 114/80; PULSE 116; TEMP 98.7
--- NOTE | 2024-08-08 10:54 | P.PN ---
Subjective Progress Note Date: 08/08/24 This is Bj Winchester NP, I'm dictating on behalf of Dr. Savage's H&P and A&P. Patient was interviewed and examined. Patient is a pleasant 48-year-old male who was admitted secondary to an anterior STEMI. Patient underwent stenting of the LAD. Patient currently reports that he feels "excellent". He denies chest pain, shortness of breath, or heart palpitations. He has not demonstrated any significant runs of nonsustained VT overnight. GENERAL: Well-appearing, well-nourished and in no acute distress. NECK: Supple without JVD or thyromegaly. LUNGS: Breath sounds clear to auscultation bilaterally. Respiration equal and unlabored. No wheezes, rales or rhonchi. HEART: Regular rate and rhythm without murmurs, rubs or gallops. S1 and S2 heard. EXTREMITIES: Normal range of motion, no edema. No clubbing or cyanosis. Peripheral pulses intact and strong. VITALS: Temp 97.9, pulse 99, respirations 16, blood pressure 122/65, O2 saturation 96% on room air TELEMETRY: Normal sinus rhythm LABS: No new labs since 08/06/2024 IMPRESSION: 1. Anterior STEMI, status post stenting of the LAD 2. Ischemic cardiomyopathy 3. Nonsustained ventricular tachycardia 4. Hypertension 5. Obstructive sleep apnea, 6. Family history of premature coronary artery disease. PLAN: Patient may be discharged from a cardiology standpoint. Continue to maximize medications, patient would likely tolerate metoprolol 150 daily. Continue to wear LifeVest for the next 3 months. Will reevaluate cardiac function at that time. Will decide at that time if patient is cleared or may need ICD. Patient will need a treadmill low level stress test in 1 to 2 weeks to evaluate how his heart does under stress. He should not work until that evaluation is completed. Continue evaluation for nonsustained VT. Continue aspirin and Brilinta. Continue atorvastatin 40 mg at bedtime. Continue Entresto, Aldactone. Continue Farxiga. Follow-up with Dr. Kelsey in 1 to 2 weeks. Objective - Vital Signs Vital signs: Vital Signs Temp 98.7 F 08/08/24 08:30 Pulse 116 H 08/08/24 08:30 Resp 16 08/08/24 08:30 BP 114/80 08/08/24 08:30 Pulse Ox 96 08/08/24 08:30 FiO2 Intake & Output 08/07/24 08/08/24 08/08/24 18:59 06:59 18:59 Intake Total 560 20 Balance 560 20 Weight 89.3 kg Intake: IV 20 20 Invasive Line 1 20 20 Oral 540 Other: Voiding Method Urinal Urinal # Bowel Movements 1 - Labs CBC & Chem 7: 08/06/24 03:00 08/06/24 03:00
--- NOTE | 2024-08-09 06:25 | P.DS ---
Providers Date of admission: 08/05/24 19:53 Attending physician: Louisa Segura Consults: 08/05/24 19:52 Consult Physician Urgent Consulting Provider: [facility] Consult Reason/Comments: acute chest pain, stemi Do you want consulting provider notified?: Already Contacted Primary care physician: Varun Morgan [facility] Course: Assessment Acute ST elevation [place], status post PCI to LAD Cardiomyopathy Nonsustained V. tach, multiple requiring external ICD, LifeVest upon discharge essential hypertension Obstructive sleep apnea obesity Hospital course: patient is a 48-year-old gentleman with past medical history significant for hypertension brought in the ER because of chest pain. Patient states that he was all right this afternoon and started experiencing chest pain that was central in location pressure-like, nonradiating, no aggravating or relieving factor associated with this chest pain. Was complaining of shortness of breath at time and was also complaining of diaphoresis. Patient was found to have non- STEMI and underwent cardiac cath and a stent placed in the LAD. Echocardiogram showed ejection fraction 30 to 35% with severe hypokinesia of the distal septal region and anterior apical wall. Chest x-ray showing no pulmonary vascular congestion. Patient was been followed closely by cardiology. LifeVest was on on the day of discharge. Patient confirms wearing it upon discharge for his history of nonsustained V. tach. Case discussed with cardiology cleared him for discharge. And family at bedside were very eager for discharge as well. Patient will be discharged on dual antiplatelet therapy with aspirin and Brilinta and risk and benefit explained for him in details and he agree. All cardiac prescriptions are provided for him upon discharge. Problems and management plan were discussed with the patient and he verbalized understanding and acceptance Patient was found stable and can be discharged home in guarded prognosis however he needs follow-up as an outpatient. Patient was instructed to follow up with PCP within one week and patient agrees Patient was instructed to follow-up with his retail property manager Dr. Davis in 2 weeks after discharge and he agrees Physical exam Gen: patient is a AAOx3, no distress CVS: S1-S2, RRR, no murmur Lungs: B/L CTA, no wheezing Abdomen: soft, no distention, no tenderness, positive bowel sounds Extremity: no leg edema or induration Time spent more than 35 minutes Patient Condition at Discharge: Stable Plan - Discharge Summary New Discharge Prescriptions: New Spironolactone [Aldactone] 25 mg PO DAILY #30 tab Dapagliflozin Propanediol [Farxiga] 10 mg PO DAILY #30 tab Atorvastatin [Lipitor] 40 mg PO HS #30 tab Aspirin 81 mg PO DAILY #30 tab Ticagrelor [Brilinta] 90 mg PO BID #60 tab Sacubitril/Valsartan [Entresto 49 mg-51 mg Tablet] 1 each PO BID #60 tab Pantoprazole [Protonix] 40 mg PO AC-BRKFST #30 tab Metoprolol Succinate (ER) [Toprol XL] 100 mg PO DAILY #30 tab Continue Fluticasone Nasal [place] [Flonase Nasal [place]] 2 spray EA NOSTRIL HS Discontinued Losartan [Cozaar] 25 mg PO HS Discharge Medication List Fluticasone Nasal [place] [Flonase Nasal [place]] 2 spray EA NOSTRIL HS 08/06/24 [History] Aspirin 81 mg PO DAILY #30 tab 08/08/24 [Rx] Atorvastatin [Lipitor] 40 mg PO HS #30 tab 08/08/24 [Rx] Dapagliflozin Propanediol [Farxiga] 10 mg PO DAILY #30 tab 08/08/24 [Rx] Metoprolol Succinate (ER) [Toprol XL] 100 mg PO DAILY #30 tab 08/08/24 [Rx] Pantoprazole [Protonix] 40 mg PO AC-BRKFST #30 tab 08/08/24 [Rx] Sacubitril/Valsartan [Entresto 49 mg-51 mg Tablet] 1 each PO BID #60 tab 08/08/24 [Rx] Spironolactone [Aldactone] 25 mg PO DAILY #30 tab 08/08/24 [Rx] Ticagrelor [Brilinta] 90 mg PO BID #60 tab 08/08/24 [Rx] Follow up Appointment(s)/Referral(s): Varun Morgan DO [Primary Care Provider] - 1-2 days Porter Savage MD [STAFF PHYSICIAN] - 2 Weeks Patient Instructions/Handouts: After Radial Heart Catheterization (GEN) Activity/Diet/Wound Care/Special Instructions: heart healthy diet Activity is restricted till you see your doctor Discharge Disposition: HOME SELF-CARE
== END 2024-08-08 11:44 | disposition home or self-care (01) | DRG 322 ==
LOC: EC 19:17 → 2SICU 19:53 → 3SCARD 08-06 17:42
PROVIDERS: ADMIT Hospitalist; ATTEND Hospitalist
PROC: B240ZZ3 Ultrasonography of Single Coronary Artery, Intravascular (ICD-10-PCS; principal; 2024-08-05 20:06)
PROC: 027034Z Dilation of Coronary Artery, One Artery with Drug-eluting Intraluminal Device, Percutaneous Approach (ICD-10-PCS; principal; 2024-08-05 20:06)
PROC: B2111ZZ Fluoroscopy of Multiple Coronary Arteries using Low Osmolar Contrast (ICD-10-PCS; principal; 2024-08-05 20:06)
PROC: 4A023N7 Measurement of Cardiac Sampling and Pressure, Left Heart, Percutaneous Approach (ICD-10-PCS; 2024-08-05 20:06)
PROC: 02JA3ZZ Inspection of Heart, Percutaneous Approach (ICD-10-PCS; 2024-08-05 20:06)
PROC: B2111ZZ Fluoroscopy of Multiple Coronary Arteries using Low Osmolar Contrast (ICD-10-PCS; 2024-08-05 20:06)
DX: I21.09 ST elevation (STEMI) myocardial infarction involving other coronary artery of anterior wall (principal); I47.20 Ventricular tachycardia, unspecified; E66.9 Obesity, unspecified; I10 Essential (primary) hypertension; I25.5 Ischemic cardiomyopathy; G47.33 Obstructive sleep apnea (adult) (pediatric); I25.10 Atherosclerotic heart disease of native coronary artery without angina pectoris; Z79.899 Other long term (current) drug therapy; Z87.891 Personal history of nicotine dependence
CPT/HCPCS: 36415; 71045; 80048; 80053; 80061; 83036; 83690; 83735; 83880; 84443; 84484; 85025; 85610; 85730; 92978; 93306; 93458; 96361; 96374; 99291

== ENCOUNTER → 2024-09-01 | Outpatient (CLI) | payer BC ==
[2024-09-01 15:02] LABS: HCT 44.2 % (39.6-50.0); HGB 14.8 g/dL (13.0-17.0); MCH 30.1 pg (27.0-32.0); MCHC 33.5 g/dL (32.0-37.0); MCV 89.8 FL (80.0-97.0); Mean Platelet Volume 11.1 FL (9.5-12.2); NRBC Per 100 WBC 0 X 10*3/uL (0.00-0.01); Platelet Count 250 X 10*3/uL (140-440); RBC 4.92 X 10*6/uL (4.40-5.60); WBC 7.84 X 10*3/uL (4.50-10.00)
[2024-09-01 15:37] LABS: ALT 42 U/L (10-49); AST 27 U/L (14-35); Albumin 4.5 g/dL (3.8-4.9); Albumin/Globulin Ratio 1.67 Ratio (1.60-3.17); Alkaline Phosphatase 71 U/L (41-126); BUN/Creat Ratio 16.12 Ratio (12.00-20.00); Blood Urea Nitrogen 12.9 mg/dL (9.0-27.0); Calcium 9.4 mg/dL (8.7-10.3); Carbon Dioxide 23.7 mmol/L (21.6-31.8); Chloride 101 mmol/L (96-109); Chol/HDL Ratio 4.18 Ratio; Globulin 2.7 g/dL (1.6-3.3); Glucose 118 mg/dL (70-110); LDL Cholesterol,Calculated 53.8 mg/dL (0.0-131.0); Sodium 138 mmol/L (135-145); Total Bilirubin 0.5 mg/dL (0.3-1.2); Total Protein 7.2 g/dL (6.2-8.2)
[2024-09-01 16:47] LABS: NT-Pro-B-Type Natriuretic Pept 301 pg/mL (0-125)
== END | disposition home or self-care (01) ==
LOC: LABWHC1 08:25
PROVIDERS: ATTEND Student in an Organized Health Care Education/Training Program
DX: Z13.6 Encounter for screening for cardiovascular disorders (principal); I50.9 Heart failure, unspecified; E11.9 Type 2 diabetes mellitus without complications; E78.5 Hyperlipidemia, unspecified; E03.9 Hypothyroidism, unspecified; D72.9 Disorder of white blood cells, unspecified; R79.89 Other specified abnormal findings of blood chemistry
CPT/HCPCS: 36415; 80053; 80061; 83036; 83880; 84443; 85027; 86141

== ENCOUNTER 2024-10-22 21:08 | Emergency (ER) | payer BC ==
[2024-10-22 21:12] VITALS: TEMP 97.9
[2024-10-22 22:16] LABS: Basophils % (A) 1.2 %; Eosinophils # (A) 0.29 10*3/uL (0.04-0.35); Eosinophils % (A) 3.4 %; HCT 43.4 % (39.6-50.0); HGB 15.4 g/dL (13.0-17.0); Lymphocytes # (A) 2.79 10*3/uL (0.90-5.00); Lymphocytes % (A) 32.7 %; MCH 31.1 pg (27.0-32.0); MCHC 35.5 g/dL (32.0-37.0); MCV 87.7 fL (80.0-97.0); Mean Platelet Volume 9.5 fL (9.5-12.2); Monocytes # (A) 0.75 10*3/uL (0.20-1.00); Monocytes % (A) 8.8 %; Neutrophils # (A) 4.56 10*3/uL (1.80-7.70); Neutrophils % (A) 53.5 %; Platelet Count 294 10*3/uL (140-440); RBC 4.95 10*6/uL (4.40-5.60); RDW 13.4 % (11.5-14.5); WBC 8.52 10*3/uL (4.50-10.00)
[2024-10-22 22:19] VITALS: RESP 16
[2024-10-22 22:28] LABS: Partial Thromboplastin Time 26.1 sec (22.0-30.0); Prothrombin Time 11.5 sec (10.0-12.5)
[2024-10-22 22:30] LABS: ALT 48 U/L (4-49); AST 39 U/L (17-59); African American GFR (CKD) >90 (>60 ml/min/1.73 sqM); Albumin 4.7 g/dL (3.5-5.0); Alkaline Phosphatase 65 U/L (38-126); Anion Gap 14 mmol/L; Blood Urea Nitrogen 16 mg/dL (9-20); Calcium 9.6 mg/dL (8.4-10.2); Carbon Dioxide 23 mmol/L (22-30); Chloride 101 mmol/L (98-107); Glucose 105 mg/dL (74-99); Magnesium 2.1 mg/dL (1.6-2.3); Non-African American GFR(CKD) >90 (>60 ml/min/1.73 sqM); Potassium 4.3 mmol/L (3.5-5.1); Sodium 138 mmol/L (137-145); Total Bilirubin 0.7 mg/dL (0.2-1.3); Total Protein 7.5 g/dL (6.3-8.2)
[2024-10-22 22:39] LABS: NT-Pro-B-Type Natriuretic Pept 78 pg/mL
[2024-10-22 23:43] VITALS: BP 117/75; PULSE 67
--- NOTE | 2024-10-22 23:51 | ED ---
Arrhythmia/Palpitations HPI - General Chief Complaint: Arrhythmia/Palpitations Stated Complaint: Elevated heart rate Time Seen by Provider: 10/22/24 21:10 Source: patient Mode of arrival: ambulatory Limitations: no limitations - History of Present Illness Initial Comments: 48-year-old male presents emergency department reporting palpitations. States that the symptoms started today. Recently in July the patient had an MA with stent placement. He was required to wear a LifeVest as he had significantly reduced EF. Patient denies having chest pain. Feels as if his heart is racing. He denies nausea or vomiting. No numbness, tingling or weakness in extremities. No abdominal pain. No changes in his bowel or bladder habits. Has been taking all of his medications without any issue. No other alleviating, precipitating or modifying factors - Related Data Home Medications Medication Instructions Recorded Confirmed Fluticasone Nasal [place] [Flonase 2 spray EA NOSTRIL HS 08/06/24 08/06/24 Nasal [place]] Previous Rx's Medication Instructions Recorded Aspirin 81 mg PO DAILY #30 tab 08/08/24 Atorvastatin [Lipitor] 40 mg PO HS #30 tab 08/08/24 Dapagliflozin Propanediol [Farxiga] 10 mg PO DAILY #30 tab 08/08/24 Metoprolol Succinate (ER) [Toprol 100 mg PO DAILY #30 tab 08/08/24 XL] Pantoprazole [Protonix] 40 mg PO AC-BRKFST #30 tab 08/08/24 Sacubitril/Valsartan [Entresto 49 1 each PO BID #60 tab 08/08/24 mg-51 mg Tablet] Spironolactone [Aldactone] 25 mg PO DAILY #30 tab 08/08/24 Ticagrelor [Brilinta] 90 mg PO BID #60 tab 08/08/24 Allergies Allergy/AdvReac Type Severity Reaction Status Date / Time No Known Allergies Allergy Verified 10/22/24 21:09 Review of Systems ROS Statement: Those systems with pertinent positive or pertinent negative responses have been documented in the HPI. ROS Other: All systems not noted in ROS Statement are negative. Past Medical History Past Medical History: Hypertension, Myocardial Infarction (MA) Additional Past Medical History / Comment(s): 08/05/24 History of Any Multi-Drug Resistant Organisms: None Reported Past Surgical History: Heart Catheterization With Stent Additional Past Surgical History / Comment(s): 1 cardiac stent Past Anesthesia/Blood Transfusion Reactions: No Reported Reaction Past Psychological History: No Psychological Hx Reported Smoking Status: Never smoker Past Alcohol Use History: Occasional Past Drug Use History: None Reported General Exam Limitations: no limitations General appearance: alert, in no apparent distress Head exam: Present: atraumatic, normocephalic, normal inspection Eye exam: Present: normal appearance, PERRL, EOMI. Absent: scleral icterus, conjunctival injection, periorbital swelling ENT exam: Present: normal exam, mucous membranes moist Neck exam: Present: normal inspection. Absent: tenderness, meningismus, lymphadenopathy Respiratory exam: Present: normal lung sounds bilaterally. Absent: respiratory distress, wheezes, rales, rhonchi, stridor Cardiovascular Exam: Present: regular rate, normal rhythm, normal heart sounds. Absent: systolic murmur, diastolic murmur, rubs, gallop, clicks GI/Abdominal exam: Present: soft, normal bowel sounds. Absent: distended, tenderness, guarding, rebound, rigid Extremities exam: Present: normal inspection, full ROM, normal capillary refill. Absent: tenderness, pedal edema, joint swelling, calf tenderness Back exam: Present: normal inspection Neurological exam: Present: alert, oriented X3, CN II-XII intact Psychiatric exam: Present: normal affect, normal mood Skin exam: Present: warm, dry, intact, normal color. Absent: rash Course Vital Signs 10/22/24 10/22/24 10/22/24 21:09 22:17 23:42 Temperature 97.9 F Pulse Rate 83 74 67 Respiratory 18 16 16 Rate Blood Pressure 125/75 116/67 117/75 O2 Sat by Pulse 98 98 98 Oximetry Medical Decision Making - Medical Decision Making Was pt. sent in by a medical professional or institution (, PA, AUTO GLASS TECHNICIAN, urgent care, hospital, or [facility]...) When possible be specific @ -No Did you speak to anyone other than the patient for history (EMS, parent, family, police, friend...)? What history was obtained from this source @ -Spoke with the for history Did you review nursing and triage notes (agree or disagree)? Why? @ -I reviewed and agree with nursing and triage notes Were old charts reviewed (outside hosp., previous admission, EMS record, old EKG, old radiological studies, urgent care reports/EKG's, [facility] records)? Report findings @ -I reviewed the patient's chart from July when he had his MA and has induced EF on ultrasound Differential Diagnosis (chest pain, altered mental status, abdominal pain women, abdominal pain men, vaginal bleeding, weakness, fever, dyspnea, syncope, headache, dizziness, GI bleed, back pain, seizure, CVA, palpatations, mental health, musculoskeletal)? @ -Differential Palpitations Ventricular arrhythmias, atrial arrhythmias, myocardial infarction, anemia, thyrotoxicosis, electrolyte imbalance, hypokalemia, pulmonary embolism, pulmonary disease, drugs, alcohol, anxiety, stress.... This is not meant to be an all-inclusive list. EKG interpreted by me (3pts min.). @ -Yes and demonstrates sinus rhythm with rate of 79. CO interval 164. QRS 87. QTc of 417. No acute ST segment elevation X-rays interpreted by me (1pt min.). @ -Yes which demonstrates no acute process CT interpreted by me (1pt min.). @ -None done U/S interpreted by me (1pt. min.). @ -None done What testing was considered but not performed or refused? (CT, X-rays, U/S, labs)? Why? @ -None What meds were considered but not given or refused? Why? @ -None Did you discuss the management of the patient with other professionals (maria l kang i.e. , PA, AUTO GLASS TECHNICIAN, lab, RT, psych nurse, group social worker, dual rate supervisor, teacher, control officer manager, wrapper caser)? Give summary @ -No Was smoking cessation discussed for >3mins.? @ -No Was critical care preformed (if so, how long)? @ -No Were there social determinants of health that impacted care today? How? (Homelessness, low income, unemployed, alcoholism, drug addiction, transportation, low edu. Level, literacy, decrease access to med. care, penitentiary, rehab)? @ -No Was there de-escalation of care discussed even if they declined (Discuss DNR or withdrawal of care, Hospice)? DNR status @ -No What co-morbidities impacted this encounter? (DM, HTN, Smoking, COPD, CAD, Cancer, CVA, ARF, Chemo, Hep., AIDS, mental health diagnosis, sleep apnea, morbid obesity)? @ -MA with heart failure Was patient admitted / discharged? Hospital course, mention meds given and route, prescriptions, significant lab abnormalities, going to OR and other pertinent info. @ -Upon arrival patient seen and evaluated in bed 12. Thorough history and physical exam was performed. IV access was established. Laboratory studies were conducted. Chest x-ray was performed. Results were discussed with patient. Did recommend overnight observation however patient refused. States he feels much better at this time and wants to go home. He is instructed follow-up with his drawing in machine tender. Return for any new or worsening symptoms were patient agreeable plan he was discharged in stable condition Undiagnosed new problem with uncertain prognosis? @ -No Drug Therapy requiring intensive monitoring for toxicity (Heparin, Nitro, Insulin, Cardizem)? @ -No Were any procedures done? @ -No Diagnosis/symptom? @ -Acute palpitations, history of MA, history of heart failure with reduced ejection fraction Acute, or Chronic, or Acute on Chronic? @ -Acute Uncomplicated (without systemic symptoms) or Complicated (systemic symptoms)? @ -Complicated Side effects of treatment? @ -No Exacerbation, Progression, or Severe Exacerbation? @ -No Poses a threat to life or bodily function? How? (Chest pain, [place], MA, pneumonia, PE, COPD, DKA, ARF, appy, cholecystitis, CVA, Diverticulitis, Homicidal, Suicidal, threat to staff... and all critical care pts) @ -No - Lab Data Result diagrams: 10/22/24 21:53 10/22/24 21:53 Lab Results 10/22/24 10/22/24 10/22/24 Range/Units 21:53 21:53 21:53 WBC 8.52 (4.50-10.00) 10*3/uL RBC 4.95 (4.40-5.60) 10*6/uL Hgb 15.4 (13.0-17.0) g/dL Hct 43.4 (39.6-50.0) % MCV 87.7 (80.0-97.0) fL MCH 31.1 (27.0-32.0) pg MCHC 35.5 (32.0-37.0) g/dL Plt Count 294 (140-440) 10*3/uL MPV 9.5 (9.5-12.2) fL Immature Gran % (Auto) 0.4 % Neutrophils % 53.5 % Lymphocytes % 32.7 % Monocytes % 8.8 % Eosinophils % 3.4 % Basophils % 1.2 % Immature Gran # 0.03 (0.00-0.04) 10*3/uL Neutrophils # 4.56 (1.80-7.70) 10*3/uL Lymphocytes # 2.79 (0.90-5.00) 10*3/uL Monocytes # 0.75 (0.20-1.00) 10*3/uL Eosinophils # 0.29 (0.04-0.35) 10*3/uL Basophils # 0.10 (0.00-0.10) 10*3/uL PT 11.5 (10.0-12.5) sec INR 1.0 (<1.2) APTT 26.1 (22.0-30.0) sec Sodium 138 (137-145) mmol/L Potassium 4.3 (3.5-5.1) mmol/L Chloride 101 (98-107) mmol/L Carbon Dioxide 23 (22-30) mmol/L Anion Gap 14 mmol/L BUN 16 (9-20) mg/dL Creatinine 0.70 (0.66-1.25) mg/dL Est GFR (CKD-EPI)AfAm >90 (>60 ml/min/1.73 sqM) Est GFR (CKD-EPI)NonAf >90 (>60 ml/min/1.73 sqM) Glucose 105 H (74-99) mg/dL Calcium 9.6 (8.4-10.2) mg/dL Magnesium 2.1 (1.6-2.3) mg/dL Total Bilirubin 0.7 (0.2-1.3) mg/dL AST 39 (17-59) U/L ALT 48 (4-49) U/L Alkaline Phosphatase 65 (38-126) U/L Troponin I (0.000-0.034) ng/mL NT-Pro-B Natriuret Pep 78 pg/mL Total Protein 7.5 (6.3-8.2) g/dL Albumin 4.7 (3.5-5.0) g/dL TSH 4.260 (0.465-4.680) mIU/L 10/22/24 Range/Units 21:53 WBC (4.50-10.00) 10*3/uL RBC (4.40-5.60) 10*6/uL Hgb (13.0-17.0) g/dL Hct (39.6-50.0) % MCV (80.0-97.0) fL MCH (27.0-32.0) pg MCHC (32.0-37.0) g/dL Plt Count (140-440) 10*3/uL MPV (9.5-12.2) fL Immature Gran % (Auto) % Neutrophils % % Lymphocytes % % Monocytes % % Eosinophils % % Basophils % % Immature Gran # (0.00-0.04) 10*3/uL Neutrophils # (1.80-7.70) 10*3/uL Lymphocytes # (0.90-5.00) 10*3/uL Monocytes # (0.20-1.00) 10*3/uL Eosinophils # (0.04-0.35) 10*3/uL Basophils # (0.00-0.10) 10*3/uL PT (10.0-12.5) sec INR (<1.2) APTT (22.0-30.0) sec Sodium (137-145) mmol/L Potassium (3.5-5.1) mmol/L Chloride (98-107) mmol/L Carbon Dioxide (22-30) mmol/L Anion Gap mmol/L BUN (9-20) mg/dL Creatinine (0.66-1.25) mg/dL Est GFR (CKD-EPI)AfAm (>60 ml/min/1.73 sqM) Est GFR (CKD-EPI)NonAf (>60 ml/min/1.73 sqM) Glucose (74-99) mg/dL Calcium (8.4-10.2) mg/dL Magnesium (1.6-2.3) mg/dL Total Bilirubin (0.2-1.3) mg/dL AST (17-59) U/L ALT (4-49) U/L Alkaline Phosphatase (38-126) U/L Troponin I <0.012 (0.000-0.034) ng/mL NT-Pro-B Natriuret Pep pg/mL Total Protein (6.3-8.2) g/dL Albumin (3.5-5.0) g/dL TSH (0.465-4.680) mIU/L Disposition Clinical Impression: Palpitations Disposition: HOME SELF-CARE Condition: Stable Instructions (If sedation given, give patient instructions): Heart Palpitations (ED) Additional Instructions: Please call the drawing in machine tender in the morning to notify them of your symptoms. Follow-up with your echo next week. Return should you have any worsening symptoms over the weekend Is patient prescribed a controlled substance at d/c from ED?: No Referrals: Loy Taylor DO [Primary Care Provider] - 1-2 days Time of Disposition: 23:51
--- NOTE | 2024-10-22 23:58 | XR ---
EXAMINATION TYPE: XR chest 2V DATE OF EXAM: 10/22/2024 11:20 PM COMPARISON: Chest radiographs from 08/05/2024 TECHNIQUE: XR chest 2V Frontal and lateral views of the chest. CLINICAL INDICATION:Male, 48 years old with history of Cough/pain; FINDINGS: Lungs/Pleura: There is no evidence of pleural effusion, focal consolidation, or pneumothorax. Pulmonary vascularity: Unremarkable. Heart/mediastinum: Cardiomediastinal silhouette is unremarkable. Musculoskeletal: No acute osseous pathology. Other findings: Overlying life vest leads identified IMPRESSION: No radiographic evidence for acute pulmonary process. [facility], , 10/22/2024 11:56 PM
== END 2024-10-22 23:54 | disposition home or self-care (01) ==
LOC: EC 21:08
DX: R00.2 Palpitations (principal); Z86.79 Personal history of other diseases of the circulatory system
CPT/HCPCS: 36415; 71046; 80053; 83735; 83880; 84443; 84484; 85025; 85610; 85730; 93005; 99285